=== PATIENT | male | born 1945 | race Caucasian/White ===

== ENCOUNTER 2019-10-07 12:40 | Emergency (ER) | payer MEDICARE ==
--- OUTSIDE RECORDS SUMMARY | 2019-10-07 14:17 | XMS REPORT | Continuity of Care Document ---
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 Camrelita Heath DO Onset: 2014 lower extremity Residual hemorrhoidal skin tags Carmelita Heath DO Onset: 11/07/2014 Disorder of skin and/or subcutaneous tissue Carmelita Heath DO Onset: 11/07 Hereditary hemochromatosis Carmelita Heath DO Onset: 01/22/2015 Polycythemia vera (clinical) Carmelita Heath DO Onset: 08/06/2015 Vitamin B deficiency Carmelita Heath DO Onset: 01/18/2016 Low back pain Carmelita Heath DO Onset: 02/04/2016 Osteoarthritis Ashlyn Phillips MD Onset: 05/26/2013 Arthralgia of the pelvic region and thigh Ashlyn Phillips MD Onset: 12/22/2012 Benign hypertensive heart disease without Ashlyn Phillips MD Onset: 11/25/2011 congestive heart failure Impaired fasting glycaemia Ashlyn Phillips MD Onset: 11/25/2011 Malignant tumor of prostate Ashlyn Phillips MD Onset: 11/25/2011 Generalized anxiety disorder Ashlyn Phillips MD Onset: 11/25/2011 Disease of blood AND/OR blood-forming organ Ashlyn Phillips MD Onset: 11/25/2011 Hypertrophy of breast Carmelita Heath DO Onset: 06/24/2016 Fibroadenosis of breast Carmelita Heath DO Onset: 06/24/2016 Disorder of breast Carmelita Heath DO Onset: 06/24/2016 Epidermoid cyst Carmelita Heath DO Onset: 03/23/2018 Shoulder joint pain Carmelita Heath DO Onset: 10/05/2018 Social History Type Date Description Comments Sex Unknown Tobacco Use Start: Unknown Never Smoked Cigarettes ETOH Use Currently consumes alcohol socially Recreational Drug Use Denies Drug Use Tobacco Use Start: Unknown Patient has never smoked Smoking Status Reviewed: 02/17/19 Patient has never smoked Allergies, Adverse Reactions, Alerts Active Allergies Reaction Severity Comments Date Iodine 10/13/2014 Contrast Materials 07/21/2005 Inactive Allergies NKDA 06/29/2012 Medications Active Medications SIG Qnty Indications Ordering Date Provider ABHIJEET Mariscal Marina, 11/30/2018 MD Angélica Metoprolol Tartrate 21/2 tabs in am Boufal, 02/02/2018 25mg Tablets 21/2 tabs in pm CarmelitaDO Hydrea 1 cap by mouth 90caps [facility], 04/09/2016 500mg Capsules every day CarmelitaDO alterating with 2 cap Escitalopram Oxalate 1 tab 2x daily Mehrhof, 20mg Tablets Alok Gaxiola M.D. Nystatin/Triamcinolone [place], Acetonide MD Aguila 973816-9.1Unit/GM-% Cream Cialis 1 by mouth every 30tabs [place], 5mg Tablets day MD Aguila Aspir-Low 1 by mouth every Unknown 81mg Tablets DR day Myrbetriq 1 by mouth every Unknown 50mg Tablets ER 24HR day Garlic Oil 1 po qday Unknown 1000mg Capsules Turmeric 1000 Mg Daily Unknown 500mg Capsules Clonazepam 1 tab by mouth Unknown 1mg Tablets three times a day Potassium Chloride ER 1 by mouth every Unknown 10Meq day Tablets ER Tylenol Extra Strength 2 tabs by mouth Unknown 500mg every 4 hours as Tablets needed Rosuvastatin Calcium 1 tab po 3 times Qian Woon, 5mg Tablets a week Multi-Vitamins 1 by mouth every Unknown Tablets day Vitamin D High Potency 1 by mouth qweek Unknown 50,000Unit Capsules Fosinopril Sodium 1 by mouth bid Unknown 20mg Tablets Hydrochlorothiazide 1 by mouth twice 90tabs Unknown 25mg Tablets a day Viagra one by mouth as 18tabs Unknown 100mg Tablets needed Canasa 1 Suppos. prn Unknown 1000mg Suppository Medications Administered in Office Medication SIG Qnty Indications Ordering Provider Date Depomedrol 40mg/1cc Angélica Marina MD 03/01/2019 (methylprednisolone acetate) Injection Depomedrol 40mg/1cc Angélica Marina MD 11/30/2018 (methylprednisolone acetate) Injection Depomedrol 40mg/1cc Hilario Rachel MD 07/07/2018 (methylprednisolone acetate) Injection Depomedrol 40mg/1cc Hilario Rachel MD 03/30/2018 (methylprednisolone acetate) Injection Depomedrol 40mg/1cc Hilario Rachel MD 03/30/2018 (methylprednisolone acetate) Injection Vitamin B12 Injection 1000 Carmelita Heath, DO 02/04/2016 mcg/Ml Injection Vitamin B12 Injection 1000 Carmelita Heath, DO 01/18/2016 mcg/Ml Injection Vitamin B12 Injection 1000 Carmelita Heath, DO 12/25/2015 mcg/Ml Injection Vitamin B12 Injection 1000 Carmelita Heath, DO 09/17/2015 mcg/Ml Injection Immunizations Description No Information Available Vital Signs Date Vital Result Comment 06/02/2019 7:54am BP Systolic 136 mmHg BP Diastolic 90 mmHg Body Temperature 97.9 F Heart Rate 66 /min Respiratory Rate 18 /min Weight 254.12 lb Pain Level 0 O2 % BldC Oximetry 95 % 03/01/2019 3:43pm BP Systolic 124 mmHg BP Diastolic 74 mmHg Body Temperature 97.4 F Heart Rate 68 /min Height 68 inches 5'8" Weight 263.00 lb BMI (Body Mass Index) 40.0 kg/m2 BSA (Body Surface Area) 2.30 m2 [place] body weight in kilograms 70 kg O2 % BldC Oximetry 97 % Results Test Acquired Date Facility Test Result H/L Range Note Hemoglobin/He 09/13/2019 [facility] Hemoglobin 17.4 gm/dL High 12.8-17.0 1 matocrit [address] [place] [address] [phone] Hematocrit 50.1 % High 38.0-48.0 1 D45 E83.110 Procedures Description No Information Available Medical Devices Description No Information Available Encounters Type Date Location Provider Dx Diagnosis Office Visit 06/02/2019 Infusion Center Abbi Gilman, D45 Polycythemia vera 7:30a GERONTOLOGICAL NURSE PRACTITIONER E83.110 Hereditary hemochromatosis Assessments Date Code Description Provider 06/02/2019 D45 Polycythemia vera Abbi Gilman, GERONTOLOGICAL NURSE PRACTITIONER 06/02/2019 E83.110 Hereditary hemochromatosis Abbi Gilman, ROLANDA Plan of Treatment Future Appointment(s):09/23/2019 9:30 am - Carmelita Heath DO at Oncology [id number]/02/2019 - Abbi Gilman, NPD45 Polycythemia veraComments:250ml phlebotomy today.Pt to continue hydroxyurea per Dr. Heath's orders.Ongoing diagnosis and treatment education.Follow up:2 months with labs [id number] Hereditary hemochromatosisComments:Controlled at this time Functional Status Description No Information Available Mental Status Description No Information Available Referrals Description No Information Available
[2019-10-07 14:36] VITALS: BP 130/84
--- NOTE | 2019-10-07 14:52 | UC ---
UC General HPI - HPI Summary HPI Summary: Pt presents with c/o cough, fatigue, fever, chills, generalized malaise X 6 weeks. - History of Current Complaint Chief Complaint: UCGeneralIllness Stated Complaint: FLU LIKE SYMP Time Seen by Provider: 10/07/19 14:48 Hx Obtained From: Patient Onset/Duration: Sudden Onset, Lasting Weeks, Still Present, Worse Since Timing: Constant Onset Severity: Mild Current Severity: Moderate Pain Intensity: 0 Associated Signs & Symptoms: Positive: Cough, Fever, Weakness - Allergy/Home Medications Allergies/Adverse Reactions: Allergies Allergy/AdvReac Type Severity Reaction Status Date / Time Ivp dye Allergy Severe Anaphylatic Uncoded 10/07/19 14:36 Shock Home Medications: Home Medications Escitalopram * [Lexapro 10 mg (NF)] 10 mg PO DAILY 05/11/15 [History Confirmed 10/07/19] Fosinopril (NF) [Monopril (NF)] 20 mg PO BID 05/11/15 [History Confirmed ] Hydrochlorothiazide TAB* [Hydrodiuril TAB*] 25 mg PO BID 05/11/15 [History Confirmed 10/07/19] Metoprolol Tartrate TAB* [Lopressor TAB*] 50 mg PO BID 05/11/15 [History Confirmed 10/07/19] Acetaminophen [Tylenol Extra Strength] 500 mg PO BID 10/07/19 [History Confirmed 10/07/19] Aspirin [Ella Chewable Aspirin] 81 mg PO DAILY 10/07/19 [History Confirmed ] Cholecalciferol (Vitamin D3) [Vitamin D3] 25 mcg PO BID 10/07/19 [History Confirmed 10/07/19] DOXYcycline CAP(*) [DOXYcycline 100MG CAP(*)] 100 mg PO Q12H #20 cap 10/07/19 [ Rx] HydroxyUREA CAP* [Hydrea CAP*] 500 mg PO DAILY 10/07/19 [History Confirmed 10/07] Multivit-Min/FA/Lycopen/Lutein [Centrum Silver Men Tablet] 1 each PO DAILY 10/07 [History Confirmed 10/07/19] Oseltamivir CAP* [Tamiflu CAP*] 75 mg PO Q12H #10 cap 10/07/19 [Rx] Potassium Chlor TAB (NF) [Kaon-Cl-10 TAB (NF)] 10 meq PO BID 10/07/19 [History Confirmed 10/07/19] Ubidecarenone [Coq10] 100 mg PO BID 10/07/19 [History Confirmed 10/07/19] predniSONE 10 mg TAB [Deltasone 10 MG TAB*] 30 mg PO DAILY #18 tab 10/07/19 [Rx] PMH/Surg Hx/FS Hx/Imm Hx Previously Healthy: Yes Endocrine History: Dyslipidemia Cardiovascular History: Cardiac Disease, Hypertension Psychological History: Anxiety, Depression - Surgical History Surgical History: Yes Surgery Procedure, Year, and Place: BILATERAL TOTAL HIP REPLACEMENTS. HERNIA REPAIR WITH MESH. TONSIILLECTOMY - Family History Known Family History: Positive: Cardiac Disease - Social History Occupation: Retired Alcohol Use: Occasionally Substance Use Type: None Smoking Status (MU): Never Smoked Tobacco Have You Smoked in the Last Year: No - Immunization History Vaccination Up to Date: No Review of Systems All Other Systems Reviewed And Are Negative: Yes Constitutional: Positive: Fever, Chills, Fatigue Skin: Positive: Negative Eyes: Positive: Negative ENT: Positive: Sinus Congestion Respiratory: Positive: Cough Cardiovascular: Positive: Negative Gastrointestinal: Positive: Diarrhea - has resolved Genitourinary: Positive: Negative Motor: Positive: Negative Neurovascular: Positive: Negative Musculoskeletal: Positive: Myalgia Neurological/Mental Status: Positive: Weakness Psychological: Positive: Negative Is Patient Immunocompromised?: No Physical Exam Triage Information Reviewed: Yes Appearance: Ill-Appearing Vital Signs: Initial Vital Signs Temp 97.5 F 10/07/19 14:26 Pulse 68 10/07/19 14:26 Resp 18 10/07/19 14:26 BP 130/84 10/07/19 14:26 Pulse Ox 98 10/07/19 14:26 Vital Signs Reviewed: Yes Eye Exam: Normal ENT: Positive: Nasal congestion Dental Exam: Normal Neck exam: Normal Respiratory: Positive: Decreased breath sounds Cardiovascular Exam: Normal Musculoskeletal Exam: Normal Neurological Exam: Normal Psychological Exam: Normal Skin Exam: Normal Diagnostics - Radiology No standard instances Radiology Interpretation Completed By: Radiologist - nad Course/Dx - Differential Dx - Multi-Symptom Differential Diagnoses: Other - influenza - Diagnoses Provider Diagnosis: Influenza A, Bronchitis Discharge ED - Sign-Out/Discharge Documenting (check all that apply): Patient Departure All imaging exams completed and their final reports reviewed: Yes - Discharge Plan Condition: Stable Disposition: HOME Prescriptions: DOXYcycline CAP(*) [DOXYcycline 100MG CAP(*)] 100 mg PO Q12H #20 cap Oseltamivir CAP* [Tamiflu CAP*] 75 mg PO Q12H #10 cap predniSONE 10 mg TAB [Deltasone 10 MG TAB*] 30 mg PO DAILY #18 tab Patient Education Materials: Influenza (ED), Acute Bronchitis (ED) Referrals: Ashlyn Phillips MD [Primary Care Provider] - As Soon As Possible - Billing Disposition and Condition Condition: STABLE Disposition: Home - Attestation Statements Provider Attestation: This patient was not seen by me. I was available for consult. Chart reviewed. RUDY
[2019-10-07 15:17] LABS: Influenza A Molecular POSITIVE (Negative)
== END 2019-10-07 16:09 | disposition home or self-care (01) ==
LOC: UCCORT 12:40
DX: J10.1 Influenza due to other identified influenza virus with other respiratory manifestations (principal); J40 Bronchitis, not specified as acute or chronic; E78.5 Hyperlipidemia, unspecified; I10 Essential (primary) hypertension; F32.9 Major depressive disorder, single episode, unspecified; F41.9 Anxiety disorder, unspecified; Z79.82 Long term (current) use of aspirin; Z79.899 Other long term (current) drug therapy; Z91.09 Other allergy status, other than to drugs and biological substances
CPT/HCPCS: 71046; 99202; G0463

== ENCOUNTER 2019-12-04 11:59 | Emergency (ER) | payer MEDICARE, OTHER ==
--- OUTSIDE RECORDS SUMMARY | 2019-12-04 12:03 | XMS REPORT | Continuity of Care Document ---
:1945 External Reference #:[id number] Author Name Oncology Nurse (transmitted by agent of provider Vee Sheehan) Address [address] [place] [address] [place] [id number] Care Team Providers Name Role Phone Ashlyn Phillips MD - Internal Medicine Care Team Information Java Security Engineer [phone] Problems Active Problems Provider Date Familial erythrocytosis Carmelita Heath DO Onset: 11/07/2014 Embolism from thrombosis of vein of distal Carmelita Heath DO Onset: 2014 lower extremity Residual [...] Onset: 11/25/2011 congestive heart failure Impaired fasting glycemia Ashlyn Phillips MD Onset: 11/25/2011 Malignant tumor of prostate Ashlyn Phillips MD Onset: 11/25/2011 Generalized anxiety disorder Ashlyn Phillips MD Onset: 11/25/2011 Disease of blood AND/OR blood-forming organ Ashlyn Phillips MD Onset: 11/25/2011 Hypertrophy of breast Carmelita Heath DO Onset: 06/24/2016 Fibroadenosis of breast Carmelita Heath DO Onset: 06/24/2016 Disorder of breast Carmelita Heath, DO Onset: 06/24/2016 Epidermoid cyst Carmelita Heath [...] SIG Qnty Indications Ordering Date Provider ABHIJEET Marina, 11/30/2018 MD Angélica Metoprolol Tartrate 21/2 tabs in am Boufal, 02/02/2018 25mg 21/2 tabs in pm Carmelita, DO Tablets Hydrea 1 cap by mouth 90caps Boufal, 04/09/2016 500mg Capsules every day Carmelita, DO alternating with 2 cap Escitalopram Oxalate 1 tab 2x daily Mehrhof, 20mg Edward G., Tablets M.D. Nystatin/Triamcinolone [place], Acetonide MD Aguila 293688-3.1Unit/GM-% Cream Cialis 1 by mouth every 30tabs [...] tab po 3 times Qian Woon, 5mg a week Tablets Multi-Vitamins 1 by mouth every Unknown Tablets day Vitamin D High Potency 1 by mouth qweek Unknown 50,000Unit Capsules Fosinopril Sodium 1 by mouth bid Unknown 20mg Tablets Hydrochlorothiazide 1 by mouth twice 90tabs Unknown 25mg a day Tablets Viagra one by mouth as 18tabs Unknown [...] kg/m2 BSA (Body Surface Area) 2.30 m2 [place] body weight in kilograms 70 kg O2 % BldC Oximetry 97 % Results Test Acquired Date Facility Test Result H/L Range Note CBC 11/25/2019 [facility] White Blood 7.2 K/uL Normal 3.4-10.5 1 W/Automated [address] [place] [address] [phone] Red Blood Count 4.89 M/uL Normal 4.20-5.80 Hemoglobin 17.1 gm/dL High 12.8-17.0 Hematocrit 50.2 % High 38.0-48.0 Mean Cell Volume 102.7 fl High 80.0-96.0 Mean Corpuscular HGB 35.0 pg High 27.0-33.0 Mean Corpuscular HGB Conc 34.1 g/dL Normal 31.7-36.0 Platelet Count 172 K/uL Normal 155-360 Red Cell Distri Width SD 51.8 fl High 36-51 Red Cell Distri Width %CV 13.7 % Normal 11.6-15.8 Mean Platelet Volume 11.2 fl High 6.6-10.6 Neut% 70.4 % Normal 33.0-73.0 Lymph % 18.0 % Low 20.0-42.0 [place] % 9.1 % Normal 0.0-10.0 Eo% 1.4 % Normal 0.0-6.6 Bas% 0.7 % Normal 0.0-1.1 Immature Grans 0.4 % Normal 0.0-5.0 NRBC % 0.0 /100WBC < 10/ 100 WBC Neut# 5.08 K/uL Normal 1.8-7.0 Lymph # 1.30 K/uL Normal 1.0-4.0 [place] # 0.66 K/uL Normal 0.0-0.8 Eos # 0.10 K/uL Normal 0.0-0.5 Baso # 0.05 K/uL Normal 0.0-0.1 Immature Grans Absolute 0.03 K/uL NRBC # 0.00 K/uL Comprehensive Metabolic 11/25/2019 [facility] Glucose 107 mg/dL High 74-[address] [place] [address] [phone] BUN 19 mg/dL High 7-18 Creatinine 1.3 mg/dL Normal 0.6-1.3 Glom Filtration Rate, Estimate 58 mL/min >60 If >60 mL/min >60 2 BUN/Creat 14.6 ratio Sodium 136 mmol/L Normal 136-145 Potassium 3.7 mmol/L Normal 3.5-5.1 Chloride 103 mmol/L Normal 98-107 Carbon Dioxide 27 mmol/L Normal 21-32 Anion Gap 6 mEq/L Low 8-16 Calcium 8.8 mg/dL Normal 8.5-10.1 Total Protein 7.7 g/dL Normal 6.4-8.2 Albumin 3.6 g/dL Normal 3.4-5.0 Globulin 4.1 g/dL Normal 1.9-4.3 Alb/Glob 0.9 ratio Bilirubin,Total 0.9 mg/dL Normal 0.2-1.0 3 Sgot/Ast 30 U/L Normal 15-37 SGPT/Alt 55 U/L Normal 12-78 Alkaline Phosphatase 52 U/L Normal 45-117 Iron-Tibc-%Sat 11/25/2019 [facility] Serum Iron 70 g/dL Normal 65-175 [address] [place] [address] [phone] Total Iron Binding Capacity 298 g/dL Normal 250-450 Transferrin %Saturation 23 % Normal 12-57 Laboratory test 11/25/2019 [facility] Ferritin 13 ng/mL Low 26-388 finding [address] [place] [address] [phone] Vitamin B12 And 11/25/2019 [facility] Vitamin B12 449 pg/mL Normal 193-986 Folate [address] [place] [address] [phone] Folic Acid > 20.0 ng/mL High 3.1-17.5 BCR-Abl1,CML/ALL,PCR,Quant 10/04/2019 [facility] b2a2 6.8441 % . [address] Transcript [place], [place] [id number] [phone] b3a2 Transcript (SEE NOTE) 5 e1a2 Transcript (SEE NOTE) 6 Interpretation (SEE NOTE) 7 Director Review (SEE NOTE) 8 Background (SEE NOTE) 9 Methodology (SEE NOTE) 10 CBC W/Automated 10/04/2019 [facility] White Blood 5.1 K/uL Normal 3.4-10.[address] [place] [address] [phone] Red Blood Count 4.71 M/uL Normal 4.20-5.80 Hemoglobin 16.7 gm/dL Normal 12.8-17.0 Hematocrit 49.7 % High 38.0-48.0 Mean Cell Volume 105.5 fl High 80.0-96.0 Mean Corpuscular HGB 35.5 pg High 27.0-33.0 Mean Corpuscular HGB Conc 33.6 g/dL Normal 31.7-36.0 Platelet Count 161 K/uL Normal 155-360 Red Cell Distri Width SD 49.0 fl Normal 36-51 Red Cell Distri Width %CV 12.4 % Normal 11.6-15.8 Mean Platelet Volume 11.2 fl High 6.6-10.6 Neut% 65.4 % Normal 33.0-73.0 Lymph % 20.9 % Normal 20.0-42.0 [place] % 10.1 % High 0.0-10.0 Eo% 2.8 % Normal 0.0-6.6 Bas% 0.4 % Normal 0.0-1.1 Immature Grans 0.4 % Normal 0.0-5.0 NRBC % 0.0 /100WBC < 10/ 100 WBC Neut# 3.32 K/uL Normal 1.8-7.0 Lymph # 1.06 K/uL Normal 1.0-4.0 [place] # 0.51 K/uL Normal 0.0-0.8 Eos # 0.14 K/uL Normal 0.0-0.5 Baso # 0.02 K/uL Normal 0.0-0.1 Immature Grans Absolute 0.02 K/uL NRBC # 0.00 K/uL Comprehensive 10/04/2019 [facility] Glucose 98 mg/dL Normal 74-106 Metabolic Panel [address] [place], [place] [id number] [phone] BUN 18 mg/dL Normal 7-18 Creatinine 1.3 mg/dL Normal 0.6-1.3 Glom Filtration Rate, Estimate 58 mL/min >60 If >60 mL/min >60 11 BUN/Creat 13.8 ratio Sodium 136 mmol/L Normal 136-145 Potassium 3.9 mmol/L Normal 3.5-5.1 Chloride 104 mmol/L Normal 98-107 Carbon Dioxide 28 mmol/L Normal 21-32 Anion Gap 4 mEq/L Low 8-16 Calcium 9.1 mg/dL Normal 8.5-10.1 Total Protein 7.4 g/dL Normal 6.4-8.2 Albumin 3.5 g/dL Normal 3.4-5.0 Globulin 3.9 g/dL Normal 1.9-4.3 Alb/Glob 0.9 ratio Bilirubin,Total 0.7 mg/dL Normal 0.2-1.0 12 Sgot/Ast 25 U/L Normal 15-37 SGPT/Alt 44 U/L Normal 12-78 Alkaline Phosphatase 54 U/L Normal 45-117 Iron-Tibc-%Sat 10/04/2019 [facility] Serum Iron 76 g/dL Normal 65-[address] [place], [place] [address] [phone] Total Iron Binding Capacity 273 g/dL Normal 250-450 Transferrin %Saturation 28 % Normal 12-57 Laboratory test 10/04/2019 [facility] Ferritin 14 ng/mL Low 26-[address] [place], [place] [address] [phone] Vitamin B12 And 10/04/2019 [facility] Vitamin B12 711 pg/mL Normal 193-986 Folate [address] [place], [place] [address] [phone] Folic Acid > 20.0 ng/mL High 3.1-17.5 Laboratory test 10/04/2019 [facility] Vitamin 42.3 30.0-100.[address] D,25-Hydroxy ng/mL [place], [place] [address] [phone] LDH 188 U/L Normal 87-241 Hemoglobin/Hematocrit 09/13/2019 [facility] Hemoglobin 17.4 High 12.8-17.[address] gm/[place] [address] [phone] Hematocrit 50.1 % High 38.0-48.0 1 D45 E83.110 E53.9 2 Note: Persistent reduction for 3 months or more in an eGFR <60 mL/min/1.73 m2 defines CKD. Patients with eGFR values >/=60 mL/min/1.73 m2 may also have CKD if evidence of persistent proteinuria is present. The original MDRD equation for estimated GFR is not valid for patients less than 18 years of age. Additional information may be found at www.kdoqi.org. 3 Please Note: Patients undergoing treatment with eltrombopag may have falsely elevated results with this assay method. 4 D45,E83.110,E53.9 5 <0.0032 % (sensitivity limit of assay) 6 <0.0032 % (sensitivity limit of assay) 7 POSITIVE for the BCR-ABL1 e13a2 (b2a2, p210) fusion transcript. 8 Araseli Stone, PhD, [facility] Director, Molecular Genetics [facility] [place], [place] 9 This assay can detect three different types of BCR-ABL1 fusion transcripts associated with CML, ALL, and AML: e13a2 (previously b2a2) and e14a2 (previously b3a2) (major breakpoint, p210), as well as e1a2 (minor breakpoint, p190). The e13a2 and e14a2 transcript values are titrated to the current International Scale (IS). The standardized baseline is 100% BCR-ABL1 (IS) and major molecular response (MMR) is equivalent to 0.1% BCR-ABL1 (IS) corresponding to a 3-log reduction. Results should be correlated with appropriate clinical and laboratory information as indicated. 10 Total RNA is isolated from the sample and subject to a real- time, reverse transcriptase polymerase chain reaction (RT- PCR). The PCR primers and probes are specific for BCR-ABL1 e13a2, e14a2 and e1a2 fusion transcripts. The ABL1 transcript is amplified as the control for cDNA quantity and quality. Serial dilutions of a validated positive control RNA with known t(9;22) BCR-ABL1 are used as reference for quantification of BCR-ABL1 relative to ABL1. The numeric BCR-ABL1 level is reportd as % BCR- ABL1/ABL1 and the detection sensitivity is 4.5 log below the standard baseline. This test was developed and its performance characteristics determined by [facility]. It has not been cleared or approved by the Food and Drug Administration. References: 1. Katlin T and Shelly S: Seminars in Hematology 2003; 40 (suppl2):62-68. 2. Tayla VELIZ, et al. Blood 2010; 116: v347-163. 3. NCCN Clinical Practice Guidelines in Oncology, Chronic Myeloid Leukemia. V2. 2017. Performed at: [facility] [address] [place], [place] [id number] Merchandiser Retail Representative: Angy Lopez MD, Phone: [phone] Performed at: - [facility] [address] [place], [place] [id number] Merchandiser Retail Representative: Angy Lopez MD, Phone: [phone] 11 Note: Persistent reduction for 3 months or more in an eGFR <60 mL/min/1.73 m2 defines CKD. Patients with eGFR values >/=60 mL/min/1.73 m2 may also have CKD if evidence of persistent proteinuria is present. The original MDRD equation for estimated GFR is not valid for patients less than 18 years of age. Additional information may be found at www.kdoqi.org. 12 Please Note: Patients undergoing treatment with eltrombopag may have falsely elevated results with this assay method. 13 Vitamin D deficiency has been defined by the [place] of Medicine and an Endocrine Society practice guideline as a level of serum 25-OH vitamin D less than 20 ng/mL (1,2). The Endocrine Society went on to further define vitamin D insufficiency as a level between 21 and 29 ng/mL (2). 1. IOM ([place] of Medicine). 2010. Dietary reference intakes for calcium and D. [place]: The National Academies Press. 2. Jonelle MF, Joe [place], Desi ORTIZ, et al. Evaluation, treatment, and prevention of vitamin D deficiency: an Endocrine Society clinical practice guideline. JCEM. 2010; 96(7):1911-30. Performed at: - [facility] [id number] Merchandiser Retail Representative: Dianna Alves MD, Phone: [phone] 14 D45 E83.110 Procedures Description No Information Available Medical Devices Description No Information Available Encounters Type Date Location Provider Dx Diagnosis Office Visit 06/02/2019 Infusion Center Abbi Gilman, D45 Polycythemia vera 7:30a TECH INTERN E83.110 Hereditary hemochromatosis Assessments Date Code Description Provider 11/25/2019 D45 Polycythemia vera Carmelita Heath DO 11/25/2019 D45 Polycythemia vera Oncology Nurse 11/25/2019 E83.110 Hereditary hemochromatosis Carmelita Heath DO 11/25/2019 E83.110 Hereditary hemochromatosis Oncology Nurse 11/25/2019 E53.9 Vitamin B deficiency, unspecified HarrisCarmelita miller, DO 11/25/2019 E53.9 Vitamin B deficiency, unspecified Oncology Nurse 10/04/2019 D45 Polycythemia vera Harrispaul Carmelita, DO 10/04/2019 D45 Polycythemia vera Oncology Nurse 10/04/2019 E83.110 Hereditary hemochromatosis MadayleticiaCarmelita, DO 10/04/2019 E83.110 Hereditary hemochromatosis Oncology Nurse 10/04/2019 E53.9 Vitamin B deficiency, unspecified Madayleticia Carmelita, DO 10/04/2019 E53.9 Vitamin B deficiency, unspecified Oncology Nurse 06/02/2019 D45 Polycythemia vera Abbi Gilman, TECH INTERN 06/02/2019 E83.110 Hereditary hemochromatosis Abbi Gilman, ROLANDA Plan of Treatment 06/02/2019 - Abbi Gilman, NPD45 Polycythemia veraComments:250ml phlebotomy today.Pt to continue hydroxyurea per Dr. Heath's orders.Ongoing diagnosis and treatment education.Follow up:2 months with labs [id number] Hereditary hemochromatosisComments:Controlled at this time Functional Status Description No Information Available Mental Status Description No Information Available Referrals Description No Information Available
--- OUTSIDE RECORDS SUMMARY | 2019-12-04 12:03 | XMS REPORT | Continuity of Care Document ---
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 Nystatin/Triamcinolone [place], Acetonide MD [place] 817035-1.1Unit/GM-% Cream Cialis 1 by mouth every 30tabs [...] Injection Vitamin B12 Injection [address], 02/04/2016 mcg/Ml Injection Vitamin B12 Injection [address], 01/18/2016 mcg/Ml Injection Vitamin B12 Injection [address] Heath, DO 12/25/2015 mcg/Ml Injection Vitamin B12 Injection [address], 09/17/2015 mcg/Ml Injection Immunizations Description No Information [...] kg/m2 BSA (Body Surface Area) 2.30 m2 [place] body weight in kilograms 70 kg O2 % BldC Oximetry 97 % Results Test Acquired Date Facility Test Result H/L Range Note Laboratory test 11/25/2019 [facility] Ferritin <pending> finding [address] [place], [place] [id number] [phone] BCR-Abl1,CML/ALL 10/04/2019 [facility] b2a2 Transcript 6.8441 % . 1 ,PCR,Quant [address] [place] [address] [phone] b3a2 Transcript (SEE NOTE) 2 e1a2 Transcript (SEE NOTE) 3 Interpretation (SEE NOTE) 4 Director Review (SEE NOTE) 5 Background (SEE NOTE) 6 Methodology (SEE NOTE) 7 CBC W/Automated 10/04/2019 [facility] White Blood 5.1 K/uL Normal 3.4-10.[address] [place] [address] [phone] Red Blood Count 4.71 M/uL Normal 4.20-5.80 [...] 33.0-73.0 Lymph % 20.9 % Normal 20.0-42.0 [place] % 10.1 % High 0.0-10.0 Eo% 2.8 % Normal 0.0-6.6 Bas% 0.4 % Normal 0.0-1.1 Immature Grans 0.4 % Normal 0.0-5.0 NRBC % 0.0 /100WBC < 10/ 100 WBC Neut# 3.32 K/uL Normal 1.8-7.0 Lymph # 1.06 K/uL Normal 1.0-4.0 [place] # 0.51 K/uL Normal 0.0-0.8 Eos # 0.14 K/uL Normal 0.0-0.5 Baso # 0.02 K/uL Normal 0.0-0.1 Immature Grans Absolute 0.02 K/uL NRBC # 0.00 K/uL Comprehensive 10/04/2019 [facility] Glucose 98 mg/dL Normal 74-106 Metabolic Panel [address] [place], [place] [id number] [phone] BUN 18 mg/dL Normal 7-18 Creatinine 1.3 mg/dL Normal 0.6-1.3 Glom Filtration Rate, Estimate 58 mL/min >60 If >60 mL/min >60 8 BUN/Creat 13.8 ratio Sodium 136 mmol/L Normal 136-145 Potassium 3.9 mmol/L Normal 3.5-5.1 Chloride 104 mmol/L Normal 98-107 Carbon Dioxide 28 mmol/L Normal 21-32 Anion Gap 4 mEq/L Low 8-16 Calcium 9.1 mg/dL Normal 8.5-10.1 Total Protein 7.4 g/dL Normal 6.4-8.2 Albumin 3.5 g/dL Normal 3.4-5.0 Globulin 3.9 g/dL Normal 1.9-4.3 Alb/Glob 0.9 ratio Bilirubin,Total 0.7 mg/dL Normal 0.2-1.0 9 Sgot/Ast 25 U/L Normal 15-37 SGPT/Alt 44 U/L Normal 12-78 Alkaline Phosphatase 54 U/L Normal 45-117 Iron-Tibc-%Sat 10/04/2019 [facility] Serum Iron 76 g/dL Normal 65-175 [address] [place], [place] [address] [phone] Total Iron Binding Capacity 273 g/dL Normal 250-450 Transferrin %Saturation 28 % Normal 12-57 Laboratory test 10/04/2019 [facility] Ferritin 14 ng/mL Low 26-388 finding [address] [place], [place] [address] [phone] Vitamin B12 And 10/04/2019 [facility] Vitamin B12 711 pg/mL Normal 193-986 Folate [address] [place], [place] [address] [phone] Folic Acid > 20.0 ng/mL High 3.1-17.5 Laboratory test 10/04/2019 [facility] Vitamin 42.3 30.0-100.[address] D,25-Hydroxy ng/mL [place], [place] [address] [phone] LDH 188 U/L Normal 87-241 Hemoglobin/Hematocrit 09/13/2019 [facility] Hemoglobin 17.4 High 12.8-17.[address] gm/[place] [address] [phone] Hematocrit 50.1 % High 38.0-48.0 1 D45,E83.110,E53.9 2 <0.0032 % (sensitivity limit of assay) 3 <0.0032 % (sensitivity limit of assay) 4 POSITIVE for the BCR-ABL1 e13a2 (b2a2, p210) fusion transcript. 5 Araseli Stone, PhD, [facility] Director, Molecular Genetics [facility]Two [facility] [place], [place] 6 This assay can detect three different types [...] appropriate clinical and laboratory information as indicated. 7 Total RNA is isolated from the sample [...] developed and its performance characteristics determined by [employer]. It has not been cleared or approved by the Food and Drug Administration. References: 1. Katlin T and Shelly S: Seminars in Hematology 2003; 40 (suppl2):62-68. 2. White HE, et al. Blood 2010; 116: e252-238. 3. NCCN Clinical Practice Guidelines in Oncology, Chronic Myeloid Leukemia. V2. 2017. Performed at: [facility] [address], [place] [id number] Addiction Psychiatrist: Angy Lopez MD, Phone: [phone] Performed at: - [facility] [address] [place], [place] [id number] Addiction Psychiatrist: Angy Lopez MD, Phone: [phone] Note: Persistent reduction for 3 months or more in an eGFR <60 mL/min/1.73 m2 defines CKD. Patients with eGFR values >/=60 mL/min/1.73 m2 may also have CKD if evidence of persistent proteinuria is present. The original MDRD equation for estimated GFR is not valid for patients less than 18 years of age. Additional information may be found at www.kdoqi.org. 9 Please Note: Patients undergoing treatment with eltrombopag may have falsely elevated results with this assay method. 10 Vitamin D deficiency has been defined by the [place] of [employer] and an Endocrine Society practice guideline as a level of serum 25-OH vitamin D less than 20 ng/mL (1,2). The Endocrine Society went on to further define vitamin D insufficiency as a level between 21 and 29 ng/mL (2). 1. IOM ([place] of [employer]). 2010. Dietary reference intakes for calcium and D. [place]: The National Academies Press. 2. Jonelle MF, Joe [place], Desi ORTIZ, et al. Evaluation, treatment, and prevention of vitamin D deficiency: an Endocrine Society clinical practice guideline. JCEM. 2010; 96(7):1911-30. Performed at: - [facility] [id number] Addiction Psychiatrist: Dianan Alves MD, Phone: [phone] D45 E83.110 Procedures Description No Information Available Medical Devices Description No Information Available Encounters Type Date Location Provider Dx Diagnosis Office Visit 06/02/2019 [facility] [place] [facility] Abbi Gilman, D45 Polycythemia vera 7:30a [employer] [facility] E83.110 Hereditary hemochromatosis Assessments Date Code Description Provider 10/04/2019 D45 Polycythemia vera Carmelita Heath, DO 10/04/2019 D45 Polycythemia vera Oncology Nurse 10/04/2019 E83.110 Hereditary hemochromatosis Carmelita Heath, DO 10/04/2019 E83.110 Hereditary hemochromatosis Oncology Nurse 10/04/2019 E53.9 Vitamin B deficiency, unspecified Carmelita Heath, DO 10/04/2019 E53.9 Vitamin B deficiency, unspecified Oncology Nurse 06/02/2019 D45 Polycythemia vera Abbi Gilman, ROLANDA 06/02/2019 E83.110 Hereditary hemochromatosis Abbi Gilman NP Plan of Treatment No Information Available Functional Status Description No Information Available Mental Status Description No Information Available Referrals Description No Information Available
[2019-12-04 12:50] VITALS: BP 152/103
--- NOTE | 2019-12-04 13:02 | UC ---
Respiratory Complaint HPI - HPI Summary HPI Summary: 74 yo male has been ill since aug cough hoarseness night sweats diagnosed with influenza in late sep cough productive feels fatigued no CP or PADGETT received package from [facility] aug no wt loss - History of Current Complaint Chief Complaint: UCGeneralIllness Stated Complaint: ANTIBODY TEST Time Seen by Provider: 12/04/19 12:19 Hx Obtained From: Patient Onset/Duration: Gradual Onset, Lasting Weeks - aug Timing: Constant Severity Initially: Moderate Severity Currently: Mild Pain Intensity: 0 Pain Scale Used: 0-10 Numeric Character: Cough: Productive Aggravating Factors: Nothing Alleviating Factors: Nothing Associated Signs And Symptoms: Positive: Fever - Late FEB, Chills - Late FEB, Hoarseness. Negative: Dyspnea, Wheezing, Hemoptysis, Dizziness, Calf Pain, Calf Swelling, Edema, URI, Nasal Congestion, Sinus Discomfort Related History: Seasonal Allergies - Allergies/Home Medications Allergies/Adverse Reactions: Allergies Allergy/AdvReac Type Severity Reaction Status Date / Time Ivp dye Allergy Severe Anaphylatic Uncoded 12/04/19 12:07 Shock Home Medications: Home Medications Escitalopram * [Lexapro 10 mg (NF)] 20 mg PO BID 05/11/15 [History Confirmed ] Fosinopril (NF) [Monopril (NF)] 20 mg PO BID 05/11/15 [History Confirmed ] Hydrochlorothiazide TAB* [Hydrodiuril TAB*] 25 mg PO BID 05/11/15 [History Confirmed 12/04/19] Metoprolol Tartrate TAB* [Lopressor TAB*] 50 mg PO BID 05/11/15 [History Confirmed 12/04/19] Acetaminophen [Tylenol Extra Strength] 500 mg PO BID 10/07/19 [History Confirmed 12/04/19] Aspirin [Ella Chewable Aspirin] 81 mg PO DAILY 10/07/19 [History Confirmed ] Cholecalciferol (Vitamin D3) [Vitamin D3] 25 mcg PO BID 10/07/19 [History Confirmed 12/04/19] HydroxyUREA CAP* [Hydrea CAP*] 500 mg PO DAILY 10/07/19 [History Confirmed 12/03] Multivit-Min/FA/Lycopen/Lutein [Centrum Silver Men Tablet] 1 each PO DAILY 10/07 [History Confirmed 12/04/19] Potassium Chlor TAB (NF) [Kaon-Cl-10 TAB (NF)] 10 meq PO BID 10/07/19 [History Confirmed 12/04/19] Ubidecarenone [Coq10] 100 mg PO BID 10/07/19 [History Confirmed 12/04/19] PMH/Surg Hx/FS Hx/Imm Hx Previously Healthy: Yes - Hemachromatosis Cardiovascular History: Cardiac Disease, Hypertension Cancer History: Prostate Cancer - Surgical History Surgical History: Yes Surgery Procedure, Year, and Place: BILATERAL TOTAL HIP REPLACEMENTS. HERNIA REPAIR WITH MESH. TONSIILLECTOMY. cardiac catheterization - Family History Known Family History: Positive: Cardiac Disease, Other - dad had prostate CA and Lung Ca - Social History Alcohol Use: Occasionally Substance Use Type: None Smoking Status (MU): Never Smoked Tobacco Have You Smoked in the Last Year: No - Immunization History Vaccination Up to Date: No Review of Systems All Other Systems Reviewed And Are Negative: Yes Constitutional: Positive: Fatigue Skin: Positive: Negative Eyes: Positive: Negative ENT: Positive: Negative Respiratory: Positive: Cough Cardiovascular: Positive: Negative Gastrointestinal: Positive: Negative Genitourinary: Positive: Negative Motor: Positive: Negative Neurovascular: Positive: Negative Musculoskeletal: Positive: Negative Neurological/Mental Status: Positive: Negative Psychological: Positive: Negative Physical Exam Triage Information Reviewed: Yes Appearance: Well-Appearing, No Pain Distress, Well-Nourished Vital Signs Reviewed: Yes Eyes: Positive: Conjunctiva Clear ENT: Positive: Hoarse voice. Negative: Hearing grossly normal, Nasal congestion , Nasal drainage, Tonsillar swelling, Tonsillar exudate, Uvula midline Dental Exam: Normal Neck: Positive: Supple, Nontender, No Lymphadenopathy Respiratory: Positive: Lungs clear, Normal breath sounds, No respiratory distress, No accessory muscle use Cardiovascular: Positive: RRR, No Murmur Musculoskeletal: Positive: ROM Intact, No Edema Neurological: Positive: Alert Psychological Exam: Normal Skin Exam: Normal Diagnostics - Radiology No standard instances Radiology Interpretation Completed By: Radiologist Summary of Radiographic Findings: NAD Respiratory Course/Dx - Differential Dx/Diagnosis Provider Diagnosis: Chronic cough, Chronic hoarseness Discharge ED - Sign-Out/Discharge Documenting (check all that apply): Patient Departure All imaging exams completed and their final reports reviewed: Yes - Discharge Plan Condition: Stable Disposition: HOME Patient Education Materials: Chronic Cough (ED) Forms: COVID-19 Tested & Isolation Referrals: Ashlyn Phillips MD [Primary Care Provider] - As Soon As Possible Additional Instructions: antibiotic test and naso-pharyngeal swab pending for COVID19 Both your chronic cough and hoarseness need to be further evaluated by your doctor Please see Dr. Phillips first available appt. your CHEST XR was normal - Billing Disposition and Condition Condition: STABLE Disposition: Home
== END 2019-12-04 13:41 | disposition home or self-care (01) ==
LOC: UCCORT 11:59
DX: R05 Cough (principal); R49.0 Dysphonia; R61 Generalized hyperhidrosis; R53.83 Other fatigue; Z20.828 Contact with and (suspected) exposure to other viral communicable diseases; I10 Essential (primary) hypertension; Z79.82 Long term (current) use of aspirin; Z79.899 Other long term (current) drug therapy; Z91.041 Radiographic dye allergy status; Z96.643 Presence of artificial hip joint, bilateral
CPT/HCPCS: 71046; 86790; 87635; 99212; G0463; U0003